=== PATIENT | male | born 1985 | race Caucasian/White ===

== ENCOUNTER 2017-11-17 14:30 | Emergency (ER) | payer MEDICAID, OTHER ==
--- NOTE | 2017-11-17 18:54 | RAD ---
SACRUM AND COCCYX 11/17/17 The SI joints are symmetrical and appear normal. The arcuate lines of the sacrum appear intact. On th e lateral view, the coccyx is acutely angulated anteriorly. While this can be a normal variant, the d egree of angulation is a little more than usual. I cannot exclude displacement here from a recent inj ury. Correlate with the exact site of pain. IMPRESSION: Anteriorly angulated coccyx suspicious for displacement. POS: HOME
== END 2017-11-17 15:55 | disposition home or self-care (01) ==
LOC: BURERS 14:30
DX: S32.2XXA Fracture of coccyx, initial encounter for closed fracture (principal); F17.210 Nicotine dependence, cigarettes, uncomplicated; W17.89XA Other fall from one level to another, initial encounter
CPT/HCPCS: 72220